=== PATIENT | female | born 1965 | race Caucasian/White ===

== ENCOUNTER → 2017-06-23 | Outpatient (CLI) | payer OTHER ==
--- NOTE | 2017-06-23 18:25 | Diagnostic Imaging Report ---
PROCEDURE:US ABDOMEN LIMITED COMPARISON:None. INDICATIONS:RUQ PAIN TECHNIQUE: Rodriguez-scale and color doppler transverse and longitudinal images of the right upper quadrant of the abdomen were obtained. FINDINGS: Liver: 14.6 cm in right mid-clavicular line. Increased echogenicity. No masses. Main portal vein: 1.1 cm. Blood flow is hepatopetal Gallbladder: Present. No evidence of gallstone, soft tissue mass, gallbladder wall thickening or pericholecystic fluid Common Bile Duct: Zero point cm Sonographic Morton's sign: Negative Right kidney: 10.7 cm. Normal echogenicity. No solid masses or hydronephrosis. Pancreas: The visualized portions are increased in echotexture without mass or ductal dilatation. Inferior vena cava: Visualized portions are unremarkable. Aorta: Within normal limits. Ascites: None in the right upper quadrant of the abdomen. CONCLUSION: Increased hepatic echotexture suggestive of steatosis. Normal gallbladder and biliary tree. Dictated by: Yanique Fernandez M.D. on 06/23/2017 at 18:26 Electronically approved by: Yanique Fernandez M.D. on 06/23/2017 at 18:26
== END ==
LOC: US 16:40
PROVIDERS: ATTEND Family Medicine
DX: R10.11 Right upper quadrant pain (principal)
CPT/HCPCS: 76705

== ENCOUNTER → 2018-09-28 | Day surgery (SDC) | payer OTHER ==
[2018-09-25 17:12] LABS: BASOPHILS # (AUTO) 0.1 (0.0-0.1); BASOPHILS % 0.6 % (0.0-1.0); EOSINOPHILS # (AUTO) 0.2 (0.0-0.4); HEMATOCRIT 39.9 % (34.2-44.1); HEMOGLOBIN 11.9 g/dL (12.0-16.0); LYMPHOCYTES # (AUTO) 2.9 (1.0-3.2); LYMPHOCYTES % 27.7 % (18.0-39.1); MEAN CORPUSCULAR HEMOGLOBIN 24.2 pg (28-32); MEAN CORPUSCULAR HGB CONC 29.8 g/dL (31-35); MEAN CORPUSCULAR VOLUME 81.1 fL (81-99); MONOCYTES # (AUTO) 0.5 (0.2-0.8); MONOCYTES % 4.7 % (4.4-11.3); NEUTROPHILS # (AUTO) 6.8 (2.1-6.9); NEUTROPHILS % 64.3 % (38.7-80.0); PLATELET COUNT 347 x10e3/uL (140-360); RED BLOOD COUNT 4.92 x10e6/uL (3.6-5.1); RED CELL DISTRIBUTION WIDTH 17.4 % (11.7-14.4)
[~2018-09-28] MED LIST: B COMPLEX1 EACH PO; DESFLURANE 240 ML BTL INH ONE; DEXAMETHASONE SOD PHOS INJ 4 MG/ML VIAL ONE; FENTANYL CITRATE/PF 100MCG/2 ML INJ ONE; FERRIC SUBSULFATE 20-22% SOLUTION 8ML MC ONE; IODINE/POTASSIUM IODIDE 8 ML SOLUTION TP ONE; IRON PO; KETOROLAC TROMETHAMINE 30 MG/ML VIAL ONE; LIDOCAINE HCL 2% LOCAL INJ 5 ML SDV VIAL INJ ONE; METOPROLOL PO; MIDAZOLAM HCL 2 MG/2 ML VIAL ONE; ONDANSETRON HCL INJ 2MG/ML 2ML 2 MG/ML VIAL ONE; PROGESTERONE PO; PROPOFOL IV EMULSION 10 MG/ML 20 ML VIAL ONE
--- OUTSIDE RECORDS SUMMARY | 2018-09-28 05:34 | XMS REPORT ---
Author Author [facility] Address Unknown Phone Unavailable Care Team Providers Care Experimental Machinist Name Role Phone DR JEAN CLAUDE LOUIE Unavailable Unavailable JEA NCLAUDE MCGRATH Unavailable Unavailable Payers Payer Name Policy Type Policy Number Effective Date Expiration Date Problems This patient has no known problems. Allergies, Adverse Reactions, Alerts Allergy Name Allergy Type Status Severity Reaction(s) Onset Date Inactive Date Treating Clinician Comments codeine DA Active U 2018-08-15 00:00:00 ciprofloxacin DA Active U 2018-08-15 00:00:00 No Known Drug Intolerances DA Active U 2008-08-30 00:00:00 Medications This patient has no known medications. Encounters Start Date/Time End Date/Time Encounter Type Admission Type Attending [facility] Care Department Encounter ID 2018-07-07 05:12:00 2018-07-07 08:25:00 Outpatient JEAN CLAUDE [facility] [id number] Results Test Description Test Time Test Comments Text Results Atomic Results Result Comments - MRI PELVIS W W/O CONT 2018-08-15 12:52:00 FAX: Precious Burton [phone] [place]: St: [facility] FAX: Jean Claude Rosen DO [phone] Name: MARRY MATA [facility] : 1965 Age/S: 52/F [address] [place] [address] Unit #: [id number] Loc: [place] [address] Phys: Precious Stern MD Acct: [id number] Dis Date: Status: REG CLI PHONE #: [phone] Exam Date: 08/15/2018916 FAX #: [phone] Reason: UTERINE FIBROIDS/ABNORMAL UTERINE BLEEDING EXAMS: CPT CODE: [id number] MRI PELVIS W W/O CONT 35932 Pelvic MRI August 15, 2018. COMPARISON: None available CLINICAL HISTORY: Uterine fibroids and heavy menstrual bleeding. TECHNIQUE: Multiplanar multisequence imaging was performed of the pelvis. Discussion: Enlarged fibroid uterus measuring approximately 17.4 x 13.9 x 13.0 cm. Multiple uterine fibroids are identified. The largest of which are is follows: 1. Left anterior lateral intramural measuring 8.2 x 6.1 x 7.8 cm. 2. Anterior midline intramural measuring 6.8 x 4.7 x 6.0 cm. 3. Left lower uterine segment transmural measuring 7.2 x 6.8 x 7.2 cm Multiple additional (greater than 10) smaller fibroids are present. The right ovary is normal in appearance measuring approximately 46 x 37 x 39 mm with a simple appearing 20 x 18 x 21 mm cyst. The left ovary is normal in appearance measuring approximately 26 x 23 x 33 mm with subcentimeter follicles. The visualized urinary bladder, cervix, vaginal vault, bowel and osseous structures are unremarkable. IMPRESSION: 1. Multiple uterine fibroids, as detailed above. at 9315 Reported and signed by: Lucia Jane M.D. CC: Precious Stern MD; Jean Claude Mcgrath DO Technologist: RT Suleiman(Ami)(MR) Trnscrd Date/Time/By: 08/15/2018 (6163) : By: CapriG Orig Print D/T: S: 08/15/2018 (5821) PAGE 1 Signed Report URINE MONOCLONALFB 2018-07-07 06:22:00 PREG UR (test code=PGU) Negative NEGATIVE US ABDOMEN LIMITED [place] [address] Patient Name: MARRY MATA MR #: [id number] : 1965 Age/Sex: 51/F Req #: [id number] Adm Physician: Ordered by: JEAN CLAUDE MCGRATH DO Report #: [id number] Location: US Room/Bed: Procedure: [id number] US/US ABDOMEN LIMITED Exam Da te: 06/23/17 Exam Time: 1704 REPORT STATUS: Sig christiana PROCEDURE: US ABDOMEN LIMITED COMPARISON: None. INDICATIONS: RU Q PAIN TECHNIQUE: Rodriguez-scale and color doppler transverse and longitudinal images of the right upper quadrant of the abdomen were obtained. FINDINGS: Liver: 14.6 cm in right mid-clavicular line. Increased echogenicity. No masses. Main portal vein: 1.1 cm. Blood flow is hepatopetal Gallbl adder: Present. No evidence of gallstone, soft tissue mass, gallbladder wall thickening or pericholecystic fluid Common Bile Duct: Zero point cm Sonograp hic Morton's sign: Negative Right kidney: 10.7 cm. Normal echogenicity. N o solid masses or hydronephrosis. Pancreas: The visualized portions are increased in echotexture without mass or ductal dilatation. Inferior v juila cava: Visualized portions are unremarkable. Aorta: Within normal limits. Ascites: None in the right upper quadrant of the abdomen. CONCLUSION: Increased hepatic echotexture suggestive of steatosis. Normal gallbladder and biliary tree. Dictated by: Stew Fernandez M.D. on 06/23/2017 at 18:26 Electronically approved by: Stew Fernandez M.D. on 06/23/2017 at 18:26 Dictated By: STEW FERNANDEZ MD 25 Transcribed By: LAURIE on 06/23/171825 COPY TO: JEAN CLAUDE MCGRATH DO
--- NOTE | 2018-09-28 07:05 | NUR ---
SPIRITUAL CARE - Pre-Surgery Assessment: Pt in bed. Pt's mother at bedside. Pt reported supportive attention from family and friends. Intervention: I provided pastoral presence, hospitality, and sympathetic listening. I acquainted pt with availability of speeder tender while hospitalized. Outcome: Pt expressed appreciation for visit. No need for follow up indicated at this time. KURT [facility]enlain Spiritual Care Department O: [phone] Pager: [phone] ([phone] number calling from)
[2018-09-28 10:50] VITALS: BP 139/83
--- NOTE | 2018-10-27 18:59 | Operative Report ---
DATE OF PROCEDURE: 09/28/2018 SURGEON: Precious Stern MD SAP BASIS: None. PREOPERATIVE DIAGNOSIS: Abnormal uterine bleeding and abnormal Pap smear. POSTOPERATIVE DIAGNOSIS: Abnormal uterine bleeding and abnormal Pap smear. PROCEDURE PERFORMED: Dilatation and curettage, hysteroscopic polypectomy, and cervical biopsies. ANESTHESIA: General. ESTIMATED BLOOD LOSS: Minimal. COMPLICATIONS: None. FINDINGS: The patient has an approximately 16 to 18-week size large fibroid uterus with retraction of the cervix to well within the pelvis, difficult to access the cervix. On hysteroscopy findings the included multiple endometrial polyps. SPECIMEN: Endometrial curettings with fragments of polyps as well as cervical biopsies from 12 o'clock, 3 o'clock, 6 o'clock, and 9 o'clock respectively. INDICATIONS: The patient is a 53-year-old female with abnormal uterine bleeding and abnormal Pap smear, unable to undergo colposcopy in office, secondary to difficult anatomy. PROCEDURE NOTE: The risks, benefits, indications, and alternatives of the procedure were discussed with the patient and consent was obtained. The patient was taken to the operating room, where general anesthesia was obtained without difficulty. The patient is prepped and draped in typical sterile fashion in the dorsal lithotomy position in [facility]. Time-out was done. The patient's bladder was drained with straight catheter prior to the procedure. A weighted speculum was placed in the vagina and the cervix could still not be grasped. A long gooseneck weighted speculum was then used and the anterior lip of the cervix was able to be grasped with a single-tooth tenaculum. The cervix was then sequentially dilated in order to advance the TruClear hysteroscope to the level of the uterine fundus. The uterine cavity was explored with the above-noted findings. The TruClear device was then used to morcellate and remove the polyps under direct visualization. A sharp curettage was then performed and all curettings were sent for pathology. Survey of the uterine cavity then revealed a normal-appearing and an intact cavity. A Kevorkian biopsy device was then used to take biopsies at the 12 o'clock, 6 o'clock, 3 o'clock, and 9 o'clock positions of the cervix. These were made hemostatic with the Bovie. Monsel's solution was placed over these. All instruments were then removed from the patient's vagina. The tenaculum sites and uterus were noted to be hemostatic. The patient was awakened and brought to recovery room in stable condition, having tolerated the procedure well. MD BRODY Lester/MODL /[id number]
== END | disposition home or self-care (01) ==
LOC: OR 05:32
PROVIDERS: ATTEND Obstetrics & Gynecology Obstetrics
DX: D25.9 Leiomyoma of uterus, unspecified (principal); N84.1 Polyp of cervix uteri; N88.2 Stricture and stenosis of cervix uteri; R87.619 Unspecified abnormal cytological findings in specimens from cervix uteri; I10 Essential (primary) hypertension; D64.9 Anemia, unspecified; E66.9 Obesity, unspecified; Z88.6 Allergy status to analgesic agent; Z88.1 Allergy status to other antibiotic agents; Z01.810 Encounter for preprocedural cardiovascular examination; Z01.812 Encounter for preprocedural laboratory examination; Z87.891 Personal history of nicotine dependence
CPT/HCPCS: 36415; 58558; 81025; 85025; 88305; 93005; J1100; J1885; J2001; J2250; J2405; J2704; J3010